=== PATIENT | male | born 1945 | race Caucasian/White ===

== ENCOUNTER 2018-07-30 08:17 | Emergency (ER) | payer MEDICARE, BC ==
[~2018-07-30] VITALS: Ht 177.8 cm; Wt 84.1 kg
[2018-07-30] MEDS ORDERED: ASPIRIN81 MG PO (08:35)
[2018-07-30] MEDS ORDERED: CLOPIDOGREL75 MG PO (08:35)
[2018-07-30] MEDS ORDERED: LISINOPRIL5 MG PO (08:36)
[2018-07-30] MEDS ORDERED: METOPROL TAR25 MG PO (08:36)
[2018-07-30] MEDS ORDERED: PERCOCET 5/325M1 TAB PO (08:38)
[2018-07-30 08:58] LABS: HEMOGLOBIN 12.5 g/dl (14.0-18.0); IMMATURE GRANULOCYTES 3.1 % (0.0-5.0); MEAN CELL VOLUME 86.8 fL CALC (80.0-100.0); MEAN CORPUSCULAR HGB 28.5 pG CALC (26.0-32.0); MEAN CORPUSCULAR HGB CONC 32.9 g/L CALC (32.0-36.0); NEUT# 7.05 thou/uL (1.82-7.42); RED BLOOD COUNT 4.38 mill/uL (4.70-6.10); RED CELL DISTRI WIDTH 12.7 % (11.5-15.5)
[2018-07-30 09:10] LABS: ANION GAP 10 (6-22 (CALC)); BUN 19 mg/dL (8-23); BUN/CREATININE RATIO 24 (12-20 (CALC)); CARBON DIOXIDE 27 mmol/l (22-30); CHLORIDE 107 mmol/l (95-108); CREATININE 0.8 mg/dL (0.7-1.3); GFR > 60 ML/MIN (>=60 (CALC)); GFR FOR AFR.AMER. > 60 ML/MIN (>=60 (CALC)); POTASSIUM 3.9 mmol/l (3.5-5.1); SODIUM 141 mmol/l (137-146)
[2018-07-30 10:29] LABS: INFLUENZA A NONE DETECTED (NONE DETECT); INFLUENZA B NONE DETECTED (NONE DETECT)
[2018-07-30] MEDS ORDERED: ZPAK PO ×2 (12:04→12:23)
[2018-07-30] MEDS ORDERED: AUGMENTIN875TAB PO ×2 (12:04→12:23)
[2018-07-30 12:32] VITALS: BP 153/98
== END 2018-07-30 12:45 | disposition home or self-care (01) ==
LOC: ED 08:17
PROVIDERS: Family Medicine
DX: J18.1 Lobar pneumonia, unspecified organism (principal); R06.02 Shortness of breath; I10 Essential (primary) hypertension; Z95.1 Presence of aortocoronary bypass graft

== ENCOUNTER 2019-02-25 09:56 | Emergency (ER) | payer MEDICARE, BC ==
[~2019-02-25] VITALS: Ht 177.8 cm; Wt 77.3 kg
[~2019-02-25 09:56] MED LIST: ASPIRIN81 MG PO; AUGMENTIN875TAB PO; CLOPIDOGREL75 MG PO; LISINOPRIL5 MG PO; METOPROL TAR25 MG PO; PERCOCET 5/325M1 TAB PO; ZPAK PO
[2019-02-25 10:18] LABS: GFR > 60 ML/MIN (>=60 (CALC)); GFR FOR AFR.AMER. > 60 ML/MIN (>=60 (CALC))
[2019-02-25 10:34] LABS: HEMATOCRIT 46.2 % (39.0-50.0); IMMATURE GRANULOCYTES 0.3 % (0.0-5.0); MEAN CELL VOLUME 86.8 fL CALC (80.0-100.0); MEAN CORPUSCULAR HGB 28.2 pG CALC (26.0-32.0); MEAN CORPUSCULAR HGB CONC 32.5 g/L CALC (32.0-36.0); NEUT# 3.4 thou/uL (1.82-7.42); RED BLOOD COUNT 5.32 mill/uL (4.70-6.10); RED CELL DISTRI WIDTH 12.4 % (11.5-15.5)
[2019-02-25 10:40] LABS: INTERNATIONAL NORMALIZED RATIO 1.1 RATIO (0.7-1.3); PROTHROMBIN TIME 11.3 SECONDS (9.0-12.5)
[2019-02-25 10:42] LABS: ANION GAP 12 (6-22 (CALC)); BUN 18 mg/dL (8-23); BUN/CREATININE RATIO 23 (12-20 (CALC)); CARBON DIOXIDE 27 mmol/l (22-30); CHLORIDE 105 mmol/l (95-108); CREATININE 0.8 mg/dL (0.7-1.3); GFR > 60 ML/MIN (>=60 (CALC)); GFR FOR AFR.AMER. > 60 ML/MIN (>=60 (CALC)); SODIUM 140 mmol/l (137-146)
[2019-02-25] MEDS ORDERED: DOXAZOSIN1 MG PO (12:04)
[2019-02-25] MEDS ORDERED: PAROXETINE10 MG PO (12:04)
[2019-02-25 12:29] VITALS: BP 163/85
== END 2019-02-25 13:10 | disposition short-term general hospital (02) ==
LOC: ED 09:56
PROVIDERS: Family Medicine
DX: I63.9 Cerebral infarction, unspecified (principal); I69.393 Ataxia following cerebral infarction; I69.320 Aphasia following cerebral infarction; R41.0 Disorientation, unspecified; R51 Headache; R29.701 NIHSS score 1; I10 Essential (primary) hypertension; Z95.1 Presence of aortocoronary bypass graft; Z85.46 Personal history of malignant neoplasm of prostate
CPT/HCPCS: Q9967